=== PATIENT | female | born 1960 | race Caucasian/White ===

== ENCOUNTER 2020-03-02 01:30 | Emergency (ER) | payer BC ==
[2020-03-02] MEDS: Sodium Chloride 0.9% 1,000 ML IV SCH (02:11)
--- NOTE | 2020-03-02 02:26 | EDM.PDOC ---
ED HPI GENERAL MEDICAL PROBLEM - General Chief Complaint: General Stated Complaint: LOW BLOOD PRESSURE Time Seen by Provider: 03/02/20 01:40 Source of Information: Reports: Patient History Limitations: Reports: No Limitations - History of Present Illness INITIAL COMMENTS - FREE TEXT/NARRATIVE: states she took her BP medication at about 4pm has rechecked her BP since then and noted it in the 90's systolic denies any blurred vision , no PALMER States she usually runs in the 120's pt is on metoprolol 100 bid and verapamil Onset: Today Onset Date: 03/01/20 Duration: Hour(s): Location: Reports: Head Quality: Reports: Ache Improves with: Reports: None Worsens with: Reports: None Associated Symptoms: Reports: No Other Symptoms right side head/behind right ear Pain Score (Numeric/FACES): 2 - Related Data Allergies Allergy/AdvReac Type Severity Reaction Status Date / Time No Known Allergies Allergy Verified 03/20/15 21:39 Home Meds: Home Meds Cyclobenzaprine [Flexeril] 10 mg PO TID PRN 03/02/20 [History] Indapamide 1.25 mg PO DAILY 03/02/20 [History] Levalbuterol Tartrate [Levalbuterol Tartrate Hfa] 2 puff INH Q4H PRN 03/02/20 [History] Metoprolol Succinate [Toprol Xl] 100 mg PO BID 03/02/20 [History] Mometasone/Formoterol [Dulera 200 MCG/5 MCG] 2 puff INH BID 03/02/20 [History] Past Medical History Respiratory History: Reports: 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: - Past Surgical History Female Surgical History: Reports: Section, Hysterectomy ED ROS GENERAL - Review of Systems Review Of Systems: See Below Constitutional: Reports: No Symptoms HEENT: Reports: No Symptoms Respiratory: Reports: No Symptoms Cardiovascular: Reports: No Symptoms Endocrine: Reports: No Symptoms GI/Abdominal: Reports: No Symptoms : Reports: No Symptoms Musculoskeletal: Reports: No Symptoms Skin: Reports: No Symptoms Neurological: Reports: No Symptoms ED EXAM, GENERAL - Physical Exam Exam: See Below Exam Limited By: No Limitations General Appearance: Alert, WD/WN, No Apparent Distress Ears: Normal External Exam Nose: Normal Inspection, Normal Mucosa Throat/Mouth: Normal Inspection, Normal Oropharynx Head: Atraumatic, Normocephalic Neck: Normal Inspection, Supple, Non-Tender Respiratory/Chest: Lungs Clear Cardiovascular: Regular Rate, Rhythm GI/Abdominal: Soft, Non-Tender Back Exam: Full Range of Motion. No: CVA Tenderness (R), CVA Tenderness (L) Extremities: Normal Range of Motion, No Pedal Edema, Normal Capillary Refill Neurological: Alert, Oriented, CN II-XII Intact, Normal Cognition, Normal Gait, Unresponsive. No: Memory Loss Remote Events, Memory Loss Recent Events Psychiatric: Normal Affect Skin Exam: Warm, Dry, Intact Course - Vital Signs Last Recorded V/S: Last Vital Signs Temp 36.1 C 03/02/20 03:17 Pulse 69 03/02/20 03:17 Resp 17 03/02/20 03:17 BP 110/55 L 03/02/20 03:17 Pulse Ox 97 03/02/20 03:17 - Orders/Labs/Meds Orders: Active Orders 24 hr Category Date Time Status Sodium Chloride 0.9% [Normal Saline] 1,000 ml Med 03/02/20 02:00 Active IV ASDIRECTED Medication Orders Sodium Chloride (Normal Saline) 1,000 mls @ 999 mls/hr IV ASDIRECTED BRITTNEE Last Admin: 03/02/20 02:11 Dose: 999 mls/hr Documented by: MARCE Meds: Medications Generic Name Dose Route Start Last Admin Trade Name Freq PRN Reason Stop Dose Admin Sodium Chloride 1,000 mls @ 999 mls/hr 03/02/20 02:00 03/02/20 02:11 Normal Saline IV 999 mls/hr ASDIRECTED BRITTNEE Administration - Re-Assessments/Exams Free Text/Narrative Re-Assessment/Exam: 03/02/20 03:16 BP reduced to 86/36 pt was given IVF NACL and BP did increase to 110/55 and pt did not feel lightheaded Departure - Departure Time of Disposition: 03:20 Disposition: Home, Self-Care 01 Condition: Fair Clinical Impression: Hypotension due to drugs - Discharge Information *PRESCRIPTION DRUG MONITORING PROGRAM REVIEWED*: Not Applicable *COPY OF PRESCRIPTION DRUG MONITORING REPORT IN PATIENT CONOR: Not Applicable Instructions: Hypotension, [id number] Referrals: Citlalli Crabtree REDUCTION FURNACE OPERATOR HELPER [Primary Care Provider] - Forms: ED Department Discharge Additional Instructions: Continue to check BP regularly and show numbers to your PCP Make appointment to see your PCP and discuss the dosing of your BP medications Sepsis Event Note (ED) - Evaluation Sepsis Screening Result: No Definite Risk - Focused Exam Vital Signs: Vital Signs Temp Pulse Resp BP Pulse Ox 03/02/20 03:17 36.1 C 69 17 110/55 L 97 03/02/20 01:57 67 88/32 L 03/02/20 01:30 36.1 C 72 17 114/41 L 98 - My Orders Last 24 Hours: My Active Orders 03/02/20 02:00 Sodium Chloride 0.9% [Normal Saline] 1,000 ml IV ASDIRECTED - Assessment/Plan Last 24 Hours: My Active Orders 03/02/20 02:00 Sodium Chloride 0.9% [Normal Saline] 1,000 ml IV ASDIRECTED
[2020-03-02 03:18] VITALS: BP 110/55; PULSE 69
== END 2020-03-02 03:22 | disposition home or self-care (01) ==
LOC: FB.ED 01:30
DX: I95.2 Hypotension due to drugs (principal); J45.909 Unspecified asthma, uncomplicated; Z79.899 Other long term (current) drug therapy
CPT/HCPCS: 99283; 99284; J7030

== ENCOUNTER 2021-01-20 11:26 | Emergency (ER) | payer BC ==
--- NOTE | 2021-01-20 12:17 | EDM.PDOC ---
ED HPI GENERAL MEDICAL PROBLEM - General Stated Complaint: LOW HEART RATE Time Seen by Provider: 01/20/21 11:30 Source of Information: Reports: Patient History Limitations: Reports: No Limitations - History of Present Illness INITIAL COMMENTS - FREE TEXT/NARRATIVE: Patient presented to the ED because of low heart rate 52-56/min this morning. She also c/o of feeling dizzy this morning, denies having any chest pain or dyspnea. She is taking metoprolol and verapamil for a tachycardia. She noticed that since she was exercising regularly her HR tends to be lower at night. 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: Oncologic (Cancer) History: Reports: Breast Other Oncologic History: left side breast cancer - Past Surgical History Female Surgical History: Reports: Section, Hysterectomy ED ROS GENERAL - Review of Systems Review Of Systems: See Below Constitutional: Reports: No Symptoms HEENT: Reports: No Symptoms Respiratory: Reports: No Symptoms Cardiovascular: Reports: No Symptoms Endocrine: Reports: No Symptoms GI/Abdominal: Reports: No Symptoms : Reports: No Symptoms Musculoskeletal: Reports: No Symptoms Skin: Reports: No Symptoms Neurological: Reports: Dizziness ED EXAM, GENERAL - Physical Exam Exam: See Below Exam Limited By: No Limitations General Appearance: Alert, No Apparent Distress Eye Exam: Bilateral Eye: PERRL Ears: Normal External Exam, Normal Canal Nose: Normal Inspection, Normal Mucosa, No Blood Throat/Mouth: Normal Inspection, Normal Lips Head: Atraumatic, Normocephalic Neck: Normal Inspection, Supple, Non-Tender Respiratory/Chest: No Respiratory Distress, Lungs Clear, Normal Breath Sounds, No Accessory Muscle Use, Chest Non-Tender Cardiovascular: Normal Peripheral Pulses, Regular Rate, Rhythm, No Edema, No Gallop, No JVD, No Murmur GI/Abdominal: Normal Bowel Sounds, Soft, Non-Tender, No Organomegaly, No Distention, No Abnormal Bruit Back Exam: Normal Inspection, Full Range of Motion Extremities: Normal Inspection, Normal Range of Motion, Non-Tender, No Pedal Edema, Normal Capillary Refill Neurological: Alert, Oriented, CN II-XII Intact, Normal Cognition, Normal Gait, Normal Reflexes, No Motor/Sensory Deficits Psychiatric: Normal Affect Skin Exam: Warm #1 Interpretation EKG Date: 01/20/21 Time: 11:30 Rhythm: NSR Rate (Beats/Min): 68 [place]: Normal P-Wave: Present QRS: Normal ST-T: Normal QT: Normal MO/PQ Interval: 162 Comparison: NA - No Prior EKG EKG Interpretation Comments: NSR Course - Vital Signs Text/Narrative:: Lab/EKG result was reviewed and discussed with patient Last Recorded V/S: Last Vital Signs Temp 36.2 C 01/20/21 11:26 Pulse 68 01/20/21 11:26 Resp 16 01/20/21 11:26 BP 139/70 01/20/21 11:26 Pulse Ox 98 01/20/21 11:26 - Orders/Labs/Meds Orders: Active Orders 24 hr Category Date Time Status EKG Documentation Completion [RC] ASDIRECTED Care 01/20/21 11:51 Ordered BASIC METABOLIC PANEL,BMP [CHEM] Stat Lab 01/20/21 11:50 Ordered CBC WITH AUTO DIFF [HEME] Stat Lab 01/20/21 11:50 Ordered EKG 12 Lead [EK] Routine Ther 01/20/21 11:50 Ordered Departure - Departure Time of Disposition: 01:00 Disposition: Home, Self-Care 01 Condition: Good Clinical Impression: Bradycardia Instructions: Bradycardia, Adult Referrals: Citlalli Crabtree NP [Primary Care Provider] - Additional Instructions: Please read discharge instructions on bradycardia/low heart rate Do not take your verapamil and metoprolol if your heart rate is 60's-70's Call you lawn sprinkler servicer and ask her if you need to take the same dose of your medications. Also mention that since you started a regular exercise regimen you noticed a decrease in your heart rate especially at night. Sepsis Event Note (ED) - Evaluation Sepsis Screening Result: No Definite Risk - Focused Exam Vital Signs: Vital Signs Temp Pulse Resp BP Pulse Ox 01/20/21 11:26 36.2 C 68 16 139/70 98 - My Orders Last 24 Hours: My Active Orders 01/20/21 11:50 BASIC METABOLIC PANEL,BMP [CHEM] Stat CBC WITH AUTO DIFF [HEME] Stat EKG 12 Lead [EK] Routine 01/20/21 11:51 EKG Documentation Completion [RC] ASDIRECTED - Assessment/Plan Last 24 Hours: My Active Orders 01/20/21 11:50 BASIC METABOLIC PANEL,BMP [CHEM] Stat CBC WITH AUTO DIFF [HEME] Stat EKG 12 Lead [EK] Routine 01/20/21 11:51 EKG Documentation Completion [RC] ASDIRECTED
[2021-01-20 12:31] VITALS: PULSE 73
[2021-01-20 12:32] VITALS: BP 128/63
== END 2021-01-20 12:45 | disposition home or self-care (01) ==
LOC: FB.ED 11:26
DX: R00.1 Bradycardia, unspecified (principal)
CPT/HCPCS: 36415; 80048; 85025; 93005; 99284-25

== ENCOUNTER 2021-03-11 06:52 | Day surgery (SDC) | payer BC ==
[~2021-03-11 06:52] MED LIST: Lactated Ringers 1,000 ML IV PRN; Sodium Chloride 0.9% 10 ML Syringe FLUSH PRN
[2021-03-11] MEDS ORDERED: Midazolam 1 MG/ML 2 ML SDV IV ONE (06:53)
[2021-03-11] MEDS ORDERED: fentaNYL 100 MCG/2 ML SDV IV ONE (06:53)
[2021-03-11] MEDS ORDERED: acetaZOLAMIDE 500 MG Cap.ER PO ONE (08:30)
[2021-03-11 08:47] VITALS: BP 106/56; PULSE 74
--- NOTE | 2021-03-11 12:43 | OR ---
DATE OF OPERATION: 03/11/2021 SURGEON: Peggy Davis MD PREOPERATIVE DIAGNOSIS: 1. Visually significant cataract, right eye. 2. Astigmatism, right eye. POSTOPERATIVE DIAGNOSES: 1. Visually significant cataract, right eye. 2. Astigmatism, right eye. PROCEDURES PERFORMED: Phacoemulsification with Toric intraocular lens placement, right eye. ASSISTANTS: None. ANESTHESIA: Local with sedation. COMPLICATIONS: None. BLOOD LOSS: None. IMPLANTS: A pre-loaded [id number] 23.0 diopter lens implanted. CDE: 3.29. DESCRIPTION OF PROCEDURE: After risks and benefits were reviewed with the patient, consent was obtained in the preoperative area, and the operative eye was marked with a surgical pen. In the preoperative area, a pledget was used to dilate the pupil consisting of a mixture of phenylephrine 10%, cyclopentolate 2%, moxifloxacin 0.5%, and bupivacaine 0.75%. The patient was placed in a seating position and a Toric marker was used to edson the 0 and 180 axis. The patient was taken to the operating room, where a time-out was performed, and the patient was placed under monitored anesthesia care. Topical tetracaine was used for anesthesia. The operative eye was prepped and draped for ophthalmic surgery, and the microscope was brought into position and focused. A Toric marker was used to edson the axis of astigmatism. A paracentesis incision was made, followed by injection of preservative-free 1% lidocaine into the anterior chamber, followed by injection of Viscoat into the anterior chamber. A microkeratome blade was used to make a corneal limbal incision temporally. A cystotome was used to make the beginning of the capsulorrhexis, which was carried around 360 degrees in a curvilinear fashion using Utrata forceps. A Hazel cannula with BSS was used to hydrodissect and hydrodelineate the nucleus. The nucleus was removed in a divide and conquer manner using phacoemulsification. Irrigation and aspiration were used to remove the remaining cortical material. Provisc was used to inflate the capsular bag, and a pre-loaded [id number] 23.0 diopter lens, serial number [id number] was injected into the capsular bag. A Sinskey hook was used to position and center the lens and rotate it to the axis of astigmatism. Next, irrigation and aspiration was used to remove any remaining viscoelastic and cortical material from the anterior chamber. BSS on a cannula was used to inflate the anterior chamber and hydrate the wound. The wound was checked and found to be watertight. 1 mg of Moxifloxacin was injected into the anterior chamber. Drapes were removed and the eye was cleaned. A drop of brimonidine 0.2% and a drop of TobraDex was placed. The eye was shielded, and the patient was taken to the recovery room in stable condition. /[id number] JESSICA/MODL
== END 2021-03-11 09:09 | disposition home or self-care (01) ==
LOC: FB.SDS 06:52
PROVIDERS: ATTEND Ophthalmology
DX: H25.813 Combined forms of age-related cataract, bilateral (principal); H04.123 Dry eye syndrome of bilateral lacrimal glands; H52.223 Regular astigmatism, bilateral; H52.201 Unspecified astigmatism, right eye; I10 Essential (primary) hypertension; F17.210 Nicotine dependence, cigarettes, uncomplicated; J45.909 Unspecified asthma, uncomplicated; K21.9 Gastro-esophageal reflux disease without esophagitis; G47.33 Obstructive sleep apnea (adult) (pediatric); J44.9 Chronic obstructive pulmonary disease, unspecified; R00.1 Bradycardia, unspecified; Z98.890 Other specified postprocedural states; Z79.899 Other long term (current) drug therapy; Z88.8 Allergy status to other drugs, medicaments and biological substances; Z91.010 Allergy to peanuts; Z91.018 Allergy to other foods; Z91.038 Other insect allergy status
CPT/HCPCS: 00142; 66984; A9270; J2250; J3010

== ENCOUNTER 2021-04-22 06:17 | Day surgery (SDC) | payer BC ==
[~2021-04-22 06:17] MED LIST changes: +acetaZOLAMIDE 500 MG Cap.ER PO ONE
[2021-04-22] MEDS ORDERED: Midazolam 1 MG/ML 2 ML SDV IV ONE (06:18)
[2021-04-22] MEDS ORDERED: fentaNYL 100 MCG/2 ML SDV IV ONE (06:18)
[2021-04-22] MEDS ORDERED: Sodium Chloride 0.9% 10 ML Syringe IV ONE (06:18)
[2021-04-22] MEDS ORDERED: Sodium Chloride 0.9% 10 ML Syringe FLUSH PRN (06:45)
[2021-04-22] MEDS ORDERED: Lactated Ringers 1,000 ML IV PRN (06:45)
[2021-04-22] MEDS ORDERED: acetaZOLAMIDE 500 MG Cap.ER PO ONE ×2 (08:00→08:30)
[2021-04-22 09:58] VITALS: BP 99/61; PULSE 73
== END 2021-04-22 09:20 | disposition home or self-care (01) ==
LOC: FB.SDS 06:17
PROVIDERS: ATTEND Ophthalmology
DX: H26.9 Unspecified cataract (principal); H04.123 Dry eye syndrome of bilateral lacrimal glands; H52.223 Regular astigmatism, bilateral; H52.202 Unspecified astigmatism, left eye; I48.92 Unspecified atrial flutter; R09.02 Hypoxemia; C50.912 Malignant neoplasm of unspecified site of left female breast; J44.9 Chronic obstructive pulmonary disease, unspecified; I10 Essential (primary) hypertension; K21.9 Gastro-esophageal reflux disease without esophagitis; F17.210 Nicotine dependence, cigarettes, uncomplicated; G47.33 Obstructive sleep apnea (adult) (pediatric); G25.81 Restless legs syndrome; Z79.899 Other long term (current) drug therapy; Z91.018 Allergy to other foods; Z91.010 Allergy to peanuts; Z91.048 Other nonmedicinal substance allergy status
CPT/HCPCS: 00142; 66984; A9270; J2250; J3010